=== PATIENT | female | born 1990 | race Caucasian/White ===

== ENCOUNTER 2016-05-06 09:57 | Emergency (ER) | payer OTHER ==
[2016-05-06 10:33] LABS: BASOPHIL 0.3 % (0-2); EOSINOPHIL 1.2 % (0-5); HCT 38.7 % (37.0-47.0); HGB 13.4 g/dl (12.5-16.0); MCH 30.6 pg (25.0-31.0); MCHC 34.6 g/dL (32.0-36.0); MCV 88.4 fL (78.0-100.0); MONOCYTE 9.5 % (0-12); MPV 9.1 fL (6.0-9.5); PLT 250 K/uL (150-400); RBC 4.38 M/uL (4.20-5.40); RDW 12.8 % (11.5-14.0); WBC 6.4 K/uL (4.0-10.5)
[2016-05-06 10:34] LABS: BILIRUBIN NEGATIVE (NEGATIVE); BLOOD NEGATIVE Ery/uL (NEGATIVE); CLARITY CLOUDY (CLEAR); COLOR YELLOW (YELLOW); GLUCOSE (U) NORMAL (NORMAL); KETONE (U) NEGATIVE (NEGATIVE); LEUKOCYTES NEGATIVE Leu/uL (NEGATIVE); NITRITE NEGATIVE (NEGATIVE); PROTEIN NEGATIVE (NEGATIVE); UROBILINOGEN 0.2 mg/dL (0.2-1.0); pH 7.5 (5.0-9.0)
[2016-05-06 10:51] LABS: ALBUMIN 4.5 g/dL (3.5-5.0); BILIRUBIN - TOTAL 0.6 mg/dL (0.1-1.0); CREATININE 0.6 mg/dL (0.5-1.0); GLOBULIN (CALCULATION) 3.6 g/dL (2.2-4.2); POTASSIUM 4.1 mmol/L (3.5-5.1); TOTAL PROTEIN 8.1 g/dL (6.4-8.3)
== END 2016-05-06 12:55 | disposition home or self-care (01) ==
LOC: FER 09:57
PROVIDERS: Internal Medicine
DX: K59.00 Constipation, unspecified (principal); F90.9 Attention-deficit hyperactivity disorder, unspecified type; Z98.890 Other specified postprocedural states
CPT/HCPCS: 36415; 74022; 80053; 81003; 83690; 85025; J1170; J2175; J2405

== ENCOUNTER 2016-05-18 21:12 | Emergency (ER) | payer OTHER ==
[2016-05-18 21:38] LABS: BASOPHIL 0.6 % (0-2); EOSINOPHIL 1.4 % (0-5); HCT 39.3 % (37.0-47.0); HGB 13.5 g/dl (12.5-16.0); LYMPHOCYTE 43.9 % (15-48); MCH 30.4 pg (25.0-31.0); MCHC 34.4 g/dL (32.0-36.0); MCV 88.5 fL (78.0-100.0); MONOCYTE 7.3 % (0-12); MPV 9.5 fL (6.0-9.5); NEUTROPHIL 46.8 % (41-80); PLT 449 K/uL (150-400); RBC 4.44 M/uL (4.20-5.40); RDW 12.9 % (11.5-14.0)
[2016-05-18 21:49] LABS: ACETAMINOPHEN (TYLENOL) < 5.0 ug/mL (10.0-30.0); ALCOHOL (ETOH) MEDICAL NONE DETECTED; SALICYLATE < 6 ug/mL (0-300)
[2016-05-18 21:50] LABS: ALBUMIN 4.5 g/dL (3.5-5.0); CREATININE 0.7 mg/dL (0.5-1.0); GLOBULIN (CALCULATION) 3.9 g/dL (2.2-4.2); TOTAL PROTEIN 8.4 g/dL (6.4-8.3)
[2016-05-18 22:17] LABS: AMPHETAMINES POSITIVE (NEGATIVE); BARBITURATES NEGATIVE (NEGATIVE); BENZODIAZEPINES NEGATIVE (NEGATIVE); COCAINE POSITIVE (NEGATIVE); MARIJUANA (THC) POSITIVE (NEGATIVE); METHADONE NEGATIVE (NEGATIVE); TRICYCLIC ANTIDEPRESSANT NEGATIVE (NEGATIVE)
== END 2016-05-19 01:51 | disposition home or self-care (01) ==
LOC: FER 21:12
PROVIDERS: Emergency Medicine
DX: T40.1X1A Poisoning by heroin, accidental (unintentional), initial encounter (principal); R41.82 Altered mental status, unspecified; F19.10 Other psychoactive substance abuse, uncomplicated; R00.0 Tachycardia, unspecified; F17.210 Nicotine dependence, cigarettes, uncomplicated
CPT/HCPCS: 36415; 71010; 80053; 80305; 85025; G0480; J2310

== ENCOUNTER 2020-06-22 02:53 | Emergency (ER) | payer OTHER ==
[~2020-06-22 02:53] MED LIST: BACTRIM DS TAB1 EACH PO; CLEOCIN300 MG PO; MOTRIN600 MG PO
[2020-06-22 03:30] LABS: BASOPHIL 0.4 % (0-2); EOSINOPHIL 2.5 % (0-5); HCT 34.2 % (37.0-47.0); HGB 11.8 g/dl (12.5-16.0); LYMPHOCYTE 22.2 % (15-48); MCH 29.6 pg (25.0-31.0); MCHC 34.5 g/dL (32.0-36.0); MCV 85.7 fL (78.0-100.0); MONOCYTE 9.2 % (0-12); MPV 9.1 fL (6.0-9.5); NEUTROPHIL 65.4 % (41-80); NRBC 0; PLT 255 K/uL (150-400); RBC 3.99 M/uL (4.20-5.40); RDW 12.4 % (11.5-14.0); WBC 7.2 K/uL (4.0-10.5)
[2020-06-22 03:47] LABS: ALBUMIN 3.7 g/dL (3.4-5.0); BILIRUBIN - TOTAL 0.5 mg/dL (0.2-1.0); BUN/CREAT RATIO (CALC) 22.4 RATIO; CREATININE 0.76 mg/dL (0.51-0.95); GLOBULIN (CALCULATION) 3.9 g/dL; MAGNESIUM 1.9 mg/dL (1.8-2.4); PHOSPHORUS 4.6 mg/dL (2.6-4.7); POTASSIUM 3.9 mmol/L (3.5-5.1); TOTAL PROTEIN 7.6 g/dL (6.4-8.2)
[2020-06-22 04:26] LABS: BILIRUBIN NEGATIVE (NEGATIVE); BLOOD NEGATIVE Ery/uL (NEGATIVE); CLARITY CLEAR (CLEAR); COLOR YELLOW (YELLOW); GLUCOSE (U) NORMAL (NORMAL); LEUKOCYTES NEGATIVE Leu/uL (NEGATIVE); NITRITE NEGATIVE (NEGATIVE); PROTEIN NEGATIVE (NEGATIVE); SPECIFIC GRAVITY 1.025 (1.001-1.030); pH 6.5 (5.0-9.0)
[2020-06-22 04:31] LABS: AMPHETAMINES POSITIVE (NEGATIVE); BARBITURATES NEGATIVE (NEGATIVE); ECSTASY (MDMA) POSITIVE (NEGATIVE); MARIJUANA (THC) NEGATIVE (NEGATIVE); METHADONE NEGATIVE (NEGATIVE); OPIATES POSITIVE (NEGATIVE); OXYCODONE NEGATIVE (NEGATIVE)
== END 2020-06-22 07:45 | disposition home or self-care (01) ==
LOC: FER 02:53
PROVIDERS: Emergency Medicine Emergency Medical Services
DX: R07.89 Other chest pain (principal); R20.2 Paresthesia of skin; G40.909 Epilepsy, unspecified, not intractable, without status epilepticus; Z88.0 Allergy status to penicillin; Z79.899 Other long term (current) drug therapy
CPT/HCPCS: 36415; 71045; 80053; 80305; 81003; 83735; 84100; 84484; 85025; 93005; J2060; J2405; J7120

== ENCOUNTER 2020-07-23 12:25 | Emergency (ER) | payer OTHER ==
[2020-07-23 14:23] LABS: BASOPHIL 0.2 % (0-2); EOSINOPHIL 1.3 % (0-5); HCT 33.4 % (37.0-47.0); HGB 11.3 g/dl (12.5-16.0); LYMPHOCYTE 7.6 % (15-48); MCH 29.7 pg (25.0-31.0); MCHC 33.8 g/dL (32.0-36.0); MCV 87.9 fL (78.0-100.0); MONOCYTE 5.3 % (0-12); MPV 9.6 fL (6.0-9.5); NEUTROPHIL 85.2 % (41-80); NRBC 0; PLT 223 K/uL (150-400); RDW 12.8 % (11.5-14.0); WBC 9.9 K/uL (4.0-10.5)
[2020-07-23 14:25] LABS: BILIRUBIN NEGATIVE (NEGATIVE); BLOOD TRACE-INTACT Ery/uL (NEGATIVE); CLARITY CLEAR (CLEAR); COLOR YELLOW (YELLOW); GLUCOSE (U) NORMAL (NORMAL); LEUKOCYTES 2+ Leu/uL (NEGATIVE); NITRITE POSITIVE (NEGATIVE); PROTEIN 2+ mg/dL (NEGATIVE)
[2020-07-23 14:35] LABS: URINARY WBC TNTC
[2020-07-23 14:36] LABS: BACTERIA 2+; SQUAMOUS EPITHELIAL CELLS RARE; URINARY RBC RARE
[2020-07-23 14:52] LABS: ALBUMIN 3.3 g/dL (3.4-5.0); BILIRUBIN - TOTAL 0.4 mg/dL (0.2-1.0); BUN/CREAT RATIO (CALC) 22.6 RATIO; CREATININE 0.53 mg/dL (0.51-0.95); GLOBULIN (CALCULATION) 3.9 g/dL; POTASSIUM 4.4 mmol/L (3.5-5.1); TOTAL PROTEIN 7.2 g/dL (6.4-8.2)
[2020-07-23] MEDS ORDERED: CEFDINIR300 MG PO (16:03)
== END 2020-07-23 17:21 | disposition left against medical advice (07) ==
LOC: FER 12:25
PROVIDERS: Physician Assistant
DX: N30.00 Acute cystitis without hematuria (principal); R19.7 Diarrhea, unspecified; Z88.0 Allergy status to penicillin; Z88.5 Allergy status to narcotic agent; Z88.6 Allergy status to analgesic agent; Z53.20 Procedure and treatment not carried out because of patient's decision for unspecified reasons
CPT/HCPCS: 36415; 80053; 81001; 83690; 85025; J2405; J7030

== ENCOUNTER 2020-07-25 17:45 | Emergency (ER) | payer OTHER ==
[~2020-07-25 17:45] MED LIST changes: +CEFDINIR300 MG PO
[2020-07-25 20:14] LABS: BASOPHIL 0.2 % (0-2); EOSINOPHIL 0.1 % (0-5); HCT 30.4 % (37.0-47.0); HGB 10.6 g/dl (12.5-16.0); LYMPHOCYTE 4.7 % (15-48); MCH 29.6 pg (25.0-31.0); MCHC 34.9 g/dL (32.0-36.0); MCV 84.9 fL (78.0-100.0); MONOCYTE 9.4 % (0-12); MPV 9.4 fL (6.0-9.5); NEUTROPHIL 83.5 % (41-80); NRBC 0; PLT 241 K/uL (150-400); RBC 3.58 M/uL (4.20-5.40); RDW 12.7 % (11.5-14.0); WBC 18.5 K/uL (4.0-10.5)
[2020-07-25 20:40] LABS: BUN/CREAT RATIO (CALC) 21.4 RATIO; CREATININE 0.56 mg/dL (0.51-0.95); POTASSIUM 3.7 mmol/L (3.5-5.1)
[2020-07-25 20:55] LABS: LACTIC ACID 0.8 mmol/L (0.4-1.9)
== END 2020-07-25 23:00 | disposition left against medical advice (07) ==
LOC: FER 17:45
PROVIDERS: Internal Medicine
DX: Z04.89 Encounter for examination and observation for other specified reasons (principal); Z53.8 Procedure and treatment not carried out for other reasons
CPT/HCPCS: 36415; 80048; 83605; 84145; 85025

== ENCOUNTER 2020-11-06 16:36 | Emergency (ER) | payer OTHER ==
[2020-11-06 18:51] LABS: BILIRUBIN NEGATIVE (NEGATIVE); BLOOD NEGATIVE Ery/uL (NEGATIVE); CLARITY CLEAR (CLEAR); COLOR YELLOW (YELLOW); GLUCOSE (U) NORMAL (NORMAL); LEUKOCYTES NEGATIVE Leu/uL (NEGATIVE); NITRITE NEGATIVE (NEGATIVE); PROTEIN 2+ mg/dL (NEGATIVE); SPECIFIC GRAVITY >=1.030 (1.001-1.030)
[2020-11-06 19:00] LABS: BACTERIA TRACE; MUCOUS TRACE
[2020-11-06 19:01] LABS: AMPHETAMINES POSITIVE (NEGATIVE); BARBITURATES NEGATIVE (NEGATIVE); ECSTASY (MDMA) POSITIVE (NEGATIVE); MARIJUANA (THC) NEGATIVE (NEGATIVE); METHADONE NEGATIVE (NEGATIVE); OPIATES NEGATIVE (NEGATIVE); OXYCODONE NEGATIVE (NEGATIVE)
[2020-11-06 19:11] LABS: BASOPHIL 0.5 % (0-2); EOSINOPHIL 1.5 % (0-5); HCT 35.8 % (37.0-47.0); HGB 12.2 g/dl (12.5-16.0); LYMPHOCYTE 28.7 % (15-48); MCH 29.7 pg (25.0-31.0); MCHC 34.1 g/dL (32.0-36.0); MCV 87.1 fL (78.0-100.0); MONOCYTE 8.2 % (0-12); MPV 9.4 fL (6.0-9.5); NEUTROPHIL 60.8 % (41-80); NRBC 0; PLT 259 K/uL (150-400); RBC 4.11 M/uL (4.20-5.40); RDW 12.5 % (11.5-14.0); WBC 9.5 K/uL (4.0-10.5)
[2020-11-06 19:56] LABS: ALBUMIN 3.7 g/dL (3.4-5.0); ALKALINE PHOSHATASE 100 U/L (46-116); ALT 56 U/L (14-59); AST 27 U/L (15-37); BILIRUBIN - TOTAL 0.9 mg/dL (0.2-1.0); BUN 22 mg/dL (7-18); CHLORIDE 104 mmol/L (98-107); CO2 (BICARBONATE) 22 mmol/L (21-32); CREATININE 0.55 mg/dL (0.51-0.95); GLOBULIN (CALCULATION) 4.6 g/dL; GLUCOSE 89 mg/dL (74-106); TOTAL PROTEIN 8.3 g/dL (6.4-8.2)
== END 2020-11-07 01:20 | disposition home or self-care (01) ==
LOC: FER 16:36
PROVIDERS: Emergency Medicine
DX: F15.129 Other stimulant abuse with intoxication, unspecified (principal); D64.9 Anemia, unspecified; Z88.6 Allergy status to analgesic agent; Z88.0 Allergy status to penicillin; Z88.5 Allergy status to narcotic agent
CPT/HCPCS: 36415; 80053; 80305; 81001; 83735; 84145; 85025; 93005; G0480; J3411; J3475; J7030

== ENCOUNTER 2021-09-08 07:37 | Emergency (ER) | payer OTHER ==
[~2021-09-08 07:37] MED LIST changes: +ONDANSETRON ODT4 MG PO
[2021-09-08] MEDS ORDERED: VENTOLIN HFA18 GM INH (11:11)
[2021-09-08] MEDS ORDERED: ZPAK PO (11:11)
[2021-09-08] MEDS ORDERED: MUCINEX 600MG600 MG PO (11:11)
== END 2021-09-08 11:20 | disposition home or self-care (01) ==
LOC: FER 07:37
DX: B34.9 Viral infection, unspecified (principal); F17.210 Nicotine dependence, cigarettes, uncomplicated; Z20.822 Contact with and (suspected) exposure to COVID-19
CPT/HCPCS: 99284; U0002

== ENCOUNTER 2021-10-03 12:05 | Emergency (ER) | payer OTHER ==
[~2021-10-03 12:05] MED LIST changes: +MUCINEX 600MG600 MG PO; +VENTOLIN HFA18 GM INH; +ZPAK PO
[2021-10-03 12:57] LABS: BASOPHIL 0.4 % (0-2); EOSINOPHIL 1.1 % (0-5); HGB 12.8 g/dl (12.5-16.0); LYMPHOCYTE 8.8 % (15-48); MCH 31.4 pg (25.0-31.0); MCHC 34.6 g/dL (32.0-36.0); MCV 90.9 fL (78.0-100.0); MONOCYTE 6.6 % (0-12); MPV 9.6 fL (6.0-9.5); NEUTROPHIL 82.6 % (41-80); NRBC 0; PLT 249 K/uL (150-400); RBC 4.07 M/uL (4.20-5.40); RDW 11.8 % (11.5-14.0); WBC 14.9 K/uL (4.0-10.5)
[2021-10-03 13:21] LABS: ALBUMIN 4.1 g/dL (3.4-5.0); ALKALINE PHOSHATASE 82 U/L (46-116); ALT 22 U/L (14-59); AST 21 U/L (15-37); BUN 21 mg/dL (7-18); BUN/CREAT RATIO (CALC) 31.8 RATIO; CHLORIDE 102 mmol/L (98-107); CO2 (BICARBONATE) 23 mmol/L (21-32); CREATININE 0.66 mg/dL (0.51-0.95); GLOBULIN (CALCULATION) 3.6 g/dL; GLUCOSE 160 mg/dL (74-106); POTASSIUM 3.5 mmol/L (3.5-5.1); TOTAL PROTEIN 7.7 g/dL (6.4-8.2)
[2021-10-03 13:41] LABS: BILIRUBIN NEGATIVE (NEGATIVE); BLOOD 1+ Ery/uL (NEGATIVE); CLARITY HAZY (CLEAR); COLOR YELLOW (YELLOW); GLUCOSE (U) 2+ mg/dL (NORMAL); LEUKOCYTES 1+ Leu/uL (NEGATIVE); NITRITE NEGATIVE (NEGATIVE); PROTEIN 2+ mg/dL (NEGATIVE); SPECIFIC GRAVITY 1.025 (1.001-1.030); pH 6.5 (5.0-9.0)
[2021-10-03 14:05] LABS: AMPHETAMINES POSITIVE (NEGATIVE); BARBITURATES NEGATIVE (NEGATIVE); ECSTASY (MDMA) POSITIVE (NEGATIVE); MARIJUANA (THC) NEGATIVE (NEGATIVE); METHADONE NEGATIVE (NEGATIVE); OPIATES NEGATIVE (NEGATIVE); OXYCODONE NEGATIVE (NEGATIVE)
[2021-10-03 14:28] LABS: SQUAMOUS EPITHELIAL CELLS >50
[2021-10-03 14:29] LABS: BACTERIA 2+
[2021-10-03 14:30] LABS: AMORPHOUS URATES CRYSTALS TRACE
== END 2021-10-03 16:05 | disposition home or self-care (01) ==
LOC: FER 12:05
PROVIDERS: Emergency Medicine
DX: T40.1X1A Poisoning by heroin, accidental (unintentional), initial encounter (principal); R11.2 Nausea with vomiting, unspecified; F17.200 Nicotine dependence, unspecified, uncomplicated; Z88.0 Allergy status to penicillin; G40.909 Epilepsy, unspecified, not intractable, without status epilepticus; Z79.899 Other long term (current) drug therapy
CPT/HCPCS: 36415; 80053; 80305; 81001; 84484; 85025; 93005; J2405; J7030